=== PATIENT | female | born 1935 | race Caucasian/White ===

== ENCOUNTER 2020-04-20 08:50 | Outpatient (CLI) | payer MEDICARE, SELFPAY | END 2020-04-20 08:51 | disposition home or self-care (01) | PROVIDERS: PCP Internal Medicine; Visit Provider Otolaryngology | DX: R42 Dizziness and giddiness (principal); H90.3 Sensorineural hearing loss, bilateral | CPT/HCPCS: 92537; 92540; 92546; 92557; 92567 ==

== ENCOUNTER 2020-05-26 11:00 | Outpatient (RCR) | payer MEDICARE, SELFPAY ==
--- NOTE | 2020-04-02 17:40 | PTOPEVAL ---
INITIAL PHYSICAL THERAPY EVALUATION and PLAN OF CARE Thank you for referring Lillie Rosa to [facility]. She will be seen in PT 2x/wk x 4 wks. Please review, sign, date and return this plan of care BRENDA. I agree with and certify that the following plan of care is medically necessary. Referring Physician Date Admitting Provider: Attending Provider: Avinash Malhotra, MD Referring Provider: *PT Outpatient Evaluation Start: 04/02/20 09:15 Freq: Status: Active Protocol: Document 04/02/20 09:05 LINDSEY (Rec: 04/02/20 10:28 LINDSEY [id number]) Therapy Assessment Status Assessment Status Assessment Status Evaluation Outpatient Past Medical History Past Medical History Source of Past Medical History Patient Neurological History Hx Transient Ischemic Attacks (TIA) Yes Cardiovascular History Hx Hypercholesterolemia Yes Hx Hypertension Yes Respiratory History Hx Respiratory Disorders No Significant History Gastrointestinal History Hx Diverticulitis Yes Genitourinary History Hx Genitourinary Disorders No Significant History Musculoskeletal History Hx Arthritis Yes: spine, hands Hx Fractures Yes: R thumb Endocrine History Hx Endocrine Disorders No Significant History Evaluation Information Problem Diagnosis dizziness and giddiness Onset past 2 years, since time - worsening Additional Evaluation Detail has had 2 major falls - last one October 2019 - struck head - needed stitches - L eyebrow other big fall Fall 2018 Subjective Information feels like she has drank too Query Text:As Reported By Patient/ much doesn't have control of Family her body, unsteadiness, thinks she gets dizziness with rolling in bed - just stays in bed, getting numbness L side of body - arm and leg - MD aware - tests have been done. In mornings when she sits at edge of bed - stays there for awhile until can begin to feel L leg Will have dizziness looking up/down, turning head quickly. Just has a weird feeling in her head [facility] scheduled Diagnostic Tests X-Rays For This Problem Yes: neck MRI For This Problem Yes: head/brain Prior Level of Function Activity Level (Last 3 Months) Hand Dominance Right Ac
--- NOTE | 2020-04-30 17:23 | PTOPEVAL ---
PHYSICAL THERAPY RE-EVALUATION and UPDATED PLAN OF CARE Thank you for referring Lillie Rosa to [facility]. I am recommending continuation of PT 1x/wk x 4 wks for further upgrading of functional mobility for return to previous lifestyle. Please review, sign, date and return this plan of care BRENDA. I agree with and certify that the following plan of care is medically necessary. Referring Physician Date Admitting Provider: Attending Provider: Avinash Malhotra, Referring Provider: *PT Outpatient Evaluation Start: 04/02/20 09:15 Freq: Status: Active Protocol: Document 04/30/20 13:40 LINDSEY (Rec: 04/30/20 17:23 LINDSEY [email or web address]) Therapy Assessment Status Assessment Status Assessment Status Re-evaluation Evaluation Information Problem Subjective Information Lillie reports feeling 50% Query Text:As Reported By Patient/ improvement with dizziness/ Family light headedness. She no longer has numbness into L LE and although daily sensation of numbness in to L UE - goes away quickly. She report still having occasional popping in L ear. Going to go see about new hearing aides. Still nervous about walking on uneven ground - likes to have a slight hand hold on something. Still having neck stiffness but less intensity. Pain Assessment Timing of Pain Assessment Timing of Pain Assessment Assessment Pain Scale Pain Scale Used Numeric (1 - 10) Self Report Pain Assessment Neck Reported Pain Level 3 Other Pain Description stiffness Lowest Pain Intensity 2 Greatest Pain Intensity 3 Pain Score Pain Score 3: Self Report Palpation Assessment Palpation Palpation decreased upper thoracic/ cervical spinal segmental mobility, increased cervical paraspinal and upper trapezius tissue tension and increased suboccipital tightness and discomfort. Via cranio-sacral techniques - marked improvement of L sphenoid and temporal mobility. Gait Assessment Gait Pattern Assessment Other Gait Observations mild decrease with heel/toe pattern - on level ground - but normal step length. On
--- NOTE | 2020-05-26 12:38 | PTOPEVAL ---
PHYSICAL THERAPY DISCHARGE SUMMARY Thank you for referring Lillie Rosa to [facility].? Lillie has been seen x 10 visits. All goals have been met, she will be discharged to her [facility]. I agree with Lillie's discharge from physical therapy. Referring Physician Date Admitting Provider: Attending Provider: Avinash Malhotra, MD Referring Provider: *PT Outpatient Evaluation Start: 04/02/20 09:15 Freq: Status: Active Protocol: Document 05/26/20 11:07 LINDSEY (Rec: 05/26/20 12:01 LINDSEY [id number]) Therapy Assessment Status Assessment Status Assessment Status Discharge Evaluation Information Problem Subjective Information Lillie states that she is Query Text:As Reported By Patient/ feeling good. When asked - Family she feels 90% improvement of dizziness, ability to walk on level ground and on stairs. She feels 50% improved with walking on uneven ground. No longer any popping in L ear. Every once in a while L UE numbness - when it occurs - doesn't last long. Still complains of neck stiffness and slight uneasiness with cervical motion - flex/ext and rotation. Pain Assessment Timing of Pain Assessment Timing of Pain Assessment Assessment Pain Scale Pain Scale Used Numeric (1 - 10) Self Report Pain Assessment Neck Reported Pain Level 1 Radicular Pain Location stiffness Lowest Pain Intensity 1 Greatest Pain Intensity 2 Pain Score Pain Score 1: Self Report Cervical and Lumbar ROM Cervical ROM Cervical ROM Comments cervical flexion - ~ 75% of normal, extension - ~75% of normal, side bending ~75% of normal, rotation - ~75% of normal Palpation Assessment Palpation Palpation Soft tissue tension - deep lateral cervical mm R>L, suboccipital R>L Increased P -A mobility T2-C6, symmetrical lateral glides. Cranially - very mild decreased with L sphenoid and temporal mobility - otherwise symmetrical motion felt this date General Exercise General Exercises Exercise Description stepping up onto 6 step - Query Text:
== END 2020-05-26 14:00 | disposition home or self-care (01) ==
LOC: ANHPT 11:00
PROVIDERS: PCP Internal Medicine; Visit Provider Otolaryngology
DX: R42 Dizziness and giddiness (principal)
CPT/HCPCS: 97110; 97116; 97140; 97162